=== PATIENT | female | born 1975 | race Caucasian/White ===

== ENCOUNTER 2023-03-06 16:57 | Emergency (ER) | payer MEDICAID ==
[~2023-03-06] VITALS: Ht 165.1 cm; Wt 104.3 kg
[2023-03-06 17:00] VITALS: BP_SYST 124; PULSE 89; RESP 17; TEMP 98.1; O2SAT 97
[2023-03-06 18:19] LABS: BASOPHILS # (AUTO) 0.1 K/uL (0.0-0.2); BASOPHILS % (AUTO) 0.7 % (0.0-2.0); EOSINOPHILS # (AUTO) 0.4 K/uL (0.0-0.4); EOSINOPHILS % (AUTO) 3.5 % (0.0-4.0); HEMATOCRIT 38.4 % (36-48); HEMOGLOBIN 13.3 g/dL (12.0-16.0); LYMPHOCYTES # (AUTO) 2.8 K/uL (1.0-5.5); LYMPHOCYTES % (AUTO) 26.3 % (20.5-51.5); MEAN CORPUSCULAR HEMOGLOBIN 34 pg (27-31); MEAN CORPUSCULAR HGB CONC 35 % (32-36); MEAN CORPUSCULAR VOLUME 97 fL (79.0-98.0); MONOCYTES # (AUTO) 0.8 K/uL (0.0-1.0); MONOCYTES % (AUTO) 7.9 % (1.7-9.3); NEUTROPHILS # (AUTO) 6.5 K/uL (1.8-7.7); NEUTROPHILS % (AUTO) 61.6 % (40.0-70.0); PLATELET COUNT (AUTO) 257 K/uL (130-430); RED BLOOD CELL COUNT(AUTO) 3.95 MIL/uL (4.2-6.2); RED CELL DISTRIBUTION WIDTH 13.6 % (9.0-15.0); WHITE BLOOD COUNT (AUTO) 10.6 K/uL (4.8-10.8)
[2023-03-06 18:33] LABS: PROTHROMBIN TIME 9.9 SECS (9.5-12.5)
[2023-03-06 18:38] LABS: CALCIUM 8.5 mg/dL (8.4-11.0); CREATININE 0.85 mg/dL (0.55-1.30); POTASSIUM 3.6 mmol/L (3.5-5.1)
[2023-03-06 18:43] LABS: ALBUMIN 3.1 g/dL (3.4-4.8); BILIRUBIN,DIRECT 0.1 mg/dL (0.0-0.3); TOTAL BILIRUBIN 0.4 mg/dL (0.0-1.0); TOTAL PROTEIN, SERUM 7.5 g/dL (6.4-8.3)
[2023-03-06] MEDS ORDERED: ANURH RC (20:58)
[2023-03-06 21:04] VITALS: BP_SYST 128; PULSE 85; RESP 17; TEMP 98.1; O2SAT 98
== END 2023-03-06 21:04 | disposition home or self-care (01) ==
LOC: SED 16:57
DX: K62.5 Hemorrhage of anus and rectum (principal); K64.4 Residual hemorrhoidal skin tags; Z79.899 Other long term (current) drug therapy
CPT/HCPCS: 36415; 76376; 80048; 80076; 82150; 83605; 83690; 85025; 85610-TC; 85730-TC; 86886; 86900; 86901; 99284